=== PATIENT | female | born 1940 | race Caucasian/White ===

== ENCOUNTER 2020-07-09 07:51 | Outpatient (CLI) | payer MEDICARE ==
--- NOTE | 2020-07-09 09:02 | MRI ---
MRI lumbar spine noncontrast HISTORY: Low back pain. Right leg radiculopathy. FINDINGS: Conus medullaris has a normal appearance. Vertebral body heights are maintained. There is d esiccation of all of the intervertebral discs. Bone marrow signal very heterogeneous with moderate discogenic endplate changes. Sagittal images through the sacrum and coccyx show no presacral mass. T12-L1: Minimal disc bulge. Thecal sac is patent. Osteophytosis of the facets. Mild right and moderat e left foraminal stenoses. L1/2: Disc space narrowing. Posterior disc bulge and circumferential degenerative changes. Moderate t o severe stenosis of the central canal and each neural foramen. L2-3: Minimal degenerative spondylolisthesis. Posterior disc bulge and circumferential degenerative c hanges. Severe stenosis of the central canal. Moderate to severe stenosis of each neural foramen. L3-4: Disc space narrowing. Minimal degenerative retrolisthesis. Posterior disc bulge and circumferen tial degenerative changes. Severe stenosis of the central canal. Moderate to severe stenosis of each neural foramen. L4-5: Posterior disc bulge and circumferential degenerative changes. Moderate stenosis of the central canal and right neural foramen. Severe stenosis of the left neural foramen. L5-S1: The thecal sac is patent. Osteophytosis of each facet. Mild stenosis of each neural foramen. T arlov cyst associated with the right S2 nerve root is 1.3 cm greatest length on the sagittal images. IMPRESSION : Multilevel degenerative changes of the lumbar spine as detailed above, multilevel severe central pratibha l stenoses and severe left foraminal stenosis at the L4-5 level. Note that the transitional vertebra at the lumbosacral junction is designated L5 level.
== END 2020-07-09 07:52 | disposition home or self-care (01) ==
LOC: BICMRI 07:51
PROVIDERS: ATTEND Orthopaedic Surgery
DX: M54.5 Low back pain (principal); M47.816 Spondylosis without myelopathy or radiculopathy, lumbar region; M48.061 Spinal stenosis, lumbar region without neurogenic claudication; M48.05 Spinal stenosis, thoracolumbar region; M48.07 Spinal stenosis, lumbosacral region
CPT/HCPCS: 72148

== ENCOUNTER 2023-02-11 04:26 | Inpatient (IN) | payer MEDICARE ==
[2023-02-11] MEDS ORDERED: Nitroglycerin 0.4 MG TAB (25 Tab Bottle) SL PRN (07:17)
[2023-02-11] MEDS ORDERED: Acetaminophen 325 MG TAB PO PRN (07:17)
[2023-02-11] MEDS ORDERED: Ondansetron ODT 4 MG TAB PO PRN (07:17)
[2023-02-11 07:56] VITALS: BMI 21.7
[2023-02-11] MEDS ORDERED: Sodium Chloride 0.9% 1,000 ML IV SCH (08:45)
[2023-02-11] MEDS ORDERED: Apixaban 5 MG TAB PO SCH (09:00)
[2023-02-11] MEDS ORDERED: dilTIAZem 30 MG TAB PO SCH (09:00)
[2023-02-11] MEDS ORDERED: Communication Order-Pharmacy FS SCH ×2 (09:06→10:15)
[2023-02-11] MEDS: Sodium Chloride 0.9% 1,000 ML IV SCH (10:34)
[2023-02-11 10:44] LABS: Hematocrit 35.7 % (36.0-47.0); Hemoglobin 11.4 g/dL (12.0-16.0); Platelet Count 269 10x3/uL (130-400)
[2023-02-11] MEDS ORDERED: Iopamidol 370 76% 100 ML VIAL ONE (11:01)
[2023-02-11 11:59] LABS: Magnesium 1.8 mg/dL (1.6-2.6)
[2023-02-11] MEDS ORDERED: Midazolam HCl 2 mg/2 ml Vial ONE (12:25)
[2023-02-11] MEDS ORDERED: fentaNYL 50 mcg/mL 1 mL Vial ONE (12:25)
[2023-02-11] MEDS ORDERED: Verapamil 5 MG/2 ML VIAL ONE (12:26)
[2023-02-11] MEDS ORDERED: Nitroglycerin 50 MG/250 ML BOT 0 ML ONE (12:26)
[2023-02-11] MEDS ORDERED: Adenosine 6 MG/2 ML VIAL ONE (12:26)
[2023-02-11] MEDS ORDERED: Lidocaine 1% (PF) 30 ML VIAL ONE (12:26)
[2023-02-11] MEDS ORDERED: Heparin 10,000 UNITS/ 10 ML VIAL ONE (12:26)
[2023-02-11] MEDS: Carvedilol 3.125 MG TAB PO SCH (19:17)
[2023-02-12] MEDS ORDERED: Metoprolol Tartrate 5 MG/5 ML VIAL IVP SCH (02:30)
[2023-02-12] MEDS ORDERED: Sodium Chloride 0.9% 250 ML IV SCH (02:30)
[2023-02-12] MEDS: Sodium Chloride 0.9% 1,000 ML IV SCH ×2 (02:34→08:31)
[2023-02-12] MEDS: cefTRIAXone\\ROCEPHIN 1 GM in Sodium Chloride 0.9% 100 ML IVPB SCH (02:44)
[2023-02-12 04:21] LABS: Cardiac Risk 2.6 (Less than 4.5); Cholesterol 193 mg/dl (< 200 Desired); HDL Cholesterol 73 mg/dL (>60 Neg Risk); LDL Cholesterol, Calculated 108 mg/dL; Magnesium 1.8 mg/dL (1.6-2.6); Triglycerides 61 mg/dL (Less than 150)
[2023-02-12] MEDS ORDERED: Digoxin 0.5 MG/2 ML AMP SLOW IVP SCH (05:15)
[2023-02-12] MEDS ORDERED: Amiodarone 150 MG, Admixture Fee 1 EACH in Dextrose 5% in Water 100 ML IVPB SCH (05:30)
[2023-02-12] MEDS ORDERED: Apixaban 5 MG TAB PO SCH (05:30)
[2023-02-12] MEDS: Amiodarone 450 MG, Admixture Fee 1 EACH in Dextrose 5% in Water 250 ML IVPB SCH (06:20)
[2023-02-12] MEDS: Carvedilol 3.125 MG TAB PO SCH ×2 (08:30→21:00)
[2023-02-12 11:44] LABS: Anion Gap 17 mmol/L (10-20); BUN (Urea Nitrogen) 14 mg/dL (9.8-20.1); Calc. Creatinine Clearance 60 mL/min (70-130); Carbon Dioxide 20 mmol/L (23-31); Chloride 105 mmol/L (98-107); Estimated GFR 86; Glucose 102 mg/dL (83-110); Potassium 5.1 mmol/L (3.5-5.1)
[2023-02-12 11:45] LABS: Sodium 137 mmol/L (136-145)
[2023-02-12] MEDS ORDERED: Furosemide 20 MG/2 ML VIAL SLOW IVP ONE (12:45)
[2023-02-12] MEDS ORDERED: ALPRAZolam 0.25 MG TAB PO PRN (19:48)
[2023-02-12] MEDS: Atorvastatin Calcium 20 MG TAB PO SCH (20:59)
[2023-02-12] MEDS ORDERED: Apixaban 2.5 MG TAB PO SCH (21:00)
[2023-02-12] MEDS: Bupropion 100 MG SR TAB PO SCH (21:00)
[2023-02-12] MEDS: Apixaban 2.5 MG TAB PO SCH (21:00)
[2023-02-12] MEDS ORDERED: Ipratropium/Albuterol 3 ML NEB NEB PRN (22:39)
[2023-02-12] MEDS ORDERED: Ipratropium/Albuterol 3 ML NEB NEB SCH (22:45)
[2023-02-12] MEDS ORDERED: Furosemide 40 MG/4 ML VIAL SLOW IVP SCH (22:45)
[2023-02-12 23:14] LABS: #Eosinphils 0.1 thou/uL (0.0-0.7); #Monocytes 0.7 thou/uL (0.11-0.59); #Neutrophils 9.9 thou/uL (1.40-6.50); %Basophils 0.3 % (0.0-1.0); %Eosinophils 0.4 % (0.0-10.0); %Lymphocytes 10.9 % (21.0-51.0); %Monocytes 5.9 % (0.0-10.0); %Neutrophils 82.2 % (42.0-75.0); Hematocrit 39.1 % (36.0-47.0); Hemoglobin 12.7 g/dL (12.0-16.0); Mean Corpuscular HGB CONC 32.5 g/dL (32.0-36.0); Mean Corpuscular Hemoglobin 30.6 pg (27.0-31.0); Mean Corpuscular Volume 94.2 fl (78.0-98.0); Mean Platelet Volume 10.8 fL (7.4-10.4); Platelet Count 305 10x3/uL (130-400); RBC Distribution Width 13.8 % (11.5-14.5); Red Blood Cell (RBC) Count 4.15 mill/uL (4.20-5.40)
[2023-02-12] MEDS ORDERED: Electrolyte Replacement Protocol 1 EACH FS SCH ×2 (23:45)
[2023-02-12 23:47] LABS: ALT (SGPT) 28 U/L (8-55); AST (SGOT) 36 U/L (5-34); Albumin 4.2 g/dL (3.4-4.8); Alkaline Phosphatase 147 U/L (40-110); Anion Gap 15 mmol/L (10-20); BUN (Urea Nitrogen) 14 mg/dL (9.8-20.1); Bilirubin, Total 0.4 mg/dL (0.2-1.2); Calc. Creatinine Clearance 52 mL/min (70-130); Calcium 9.7 mg/dL (7.8-10.44); Carbon Dioxide 24 mmol/L (23-31); Chloride 99 mmol/L (98-107); Estimated GFR 73; Globulin 2.5 g/dL (2.4-3.5); Glucose 157 mg/dL (83-110); Potassium 3.4 mmol/L (3.5-5.1); Protein, Total 6.7 g/dL (5.8-8.1); Sodium 135 mmol/L (136-145)
[2023-02-12 23:57] LABS: Troponin I 0.516 ng/mL (< 0.028)
[2023-02-12] MEDS ORDERED: Magnesium 2 GM/50 ML(in water) 2 GM in Premix Bag 1 BAG IVPB SCH (23:59)
[2023-02-12] MEDS ORDERED: Potassium Chloride 20 MEQ TAB PO SCH (23:59)
[2023-02-13 00:14] LABS: Magnesium 1.8 mg/dL (1.6-2.6)
[2023-02-13] MEDS: cefTRIAXone\\ROCEPHIN 1 GM in Sodium Chloride 0.9% 100 ML IVPB SCH (04:55)
[2023-02-13] MEDS: Furosemide 40 MG/4 ML VIAL SLOW IVP SCH ×2 (04:56→15:36)
[2023-02-13] MEDS ORDERED: Montelukast Sodium 10 mg Tablet PO SCH (09:00)
[2023-02-13] MEDS: Fluticasone Propionate Nasal Spray 16 gm Bottle NASAL SCH (09:18)
[2023-02-13] MEDS: Oxybutynin ER 5 MG TAB PO SCH (09:20)
[2023-02-13] MEDS: ALPRAZolam 0.5 MG TAB PO PRN (09:20)
[2023-02-13] MEDS: Bupropion 100 MG SR TAB PO SCH ×2 (09:20→20:43)
[2023-02-13] MEDS: Apixaban 2.5 MG TAB PO SCH ×2 (09:21→20:43)
[2023-02-13] MEDS: Gabapentin 300 MG CAP PO SCH (09:21)
[2023-02-13] MEDS: Citalopram 20 MG TAB PO SCH (09:22)
[2023-02-13] MEDS: Montelukast Sodium 10 mg Tablet PO SCH (09:22)
[2023-02-13] MEDS: Carvedilol 3.125 MG TAB PO SCH ×2 (09:22→20:43)
[2023-02-13] MEDS: Digoxin 0.5 MG/2 ML AMP SLOW IVP SCH ×2 (10:29→13:43)
[2023-02-13] MEDS ORDERED: Ipratropium/Albuterol 3 ML NEB NEB SCH (12:45)
[2023-02-13] MEDS: Nitrofurantoin Monohyd/M-Cryst 100 MG CAP PO SCH ×2 (13:49→20:43)
[2023-02-13] MEDS ORDERED: Digoxin 0.25 MG TAB PO SCH (14:00)
[2023-02-13] MEDS: Atorvastatin Calcium 20 MG TAB PO SCH (20:43)
[2023-02-13] MEDS: Amiodarone 450 MG, Admixture Fee 1 EACH in Dextrose 5% in Water 250 ML IVPB SCH (20:43)
[2023-02-14] MEDS: ALPRAZolam 0.5 MG TAB PO PRN ×2 (01:31→21:11)
[2023-02-14 06:35] LABS: Hematocrit 33.3 % (36.0-47.0); Hemoglobin 10.8 g/dL (12.0-16.0); Mean Corpuscular HGB CONC 32.4 g/dL (32.0-36.0); Mean Corpuscular Hemoglobin 30.7 pg (27.0-31.0); Mean Corpuscular Volume 94.6 fl (78.0-98.0); Platelet Count 224 10x3/uL (130-400); RBC Distribution Width 13.5 % (11.5-14.5); Red Blood Cell (RBC) Count 3.52 mill/uL (4.20-5.40); White Blood Cell (WBC) Count 8.4 10x3/uL (4.8-10.8)
[2023-02-14 06:55] LABS: Anion Gap 11 mmol/L (10-20); BUN (Urea Nitrogen) 15 mg/dL (9.8-20.1); Calc. Creatinine Clearance 57 mL/min (70-130); Calcium 8.7 mg/dL (7.8-10.44); Carbon Dioxide 27 mmol/L (23-31); Chloride 95 mmol/L (98-107); Estimated GFR 78; Glucose 107 mg/dL (83-110); Potassium 3.4 mmol/L (3.5-5.1); Sodium 130 mmol/L (136-145)
[2023-02-14] MEDS ORDERED: Potassium Chloride 20 MEQ TAB PO SCH (08:30)
[2023-02-14] MEDS: Fluticasone Propionate Nasal Spray 16 gm Bottle NASAL SCH (09:00)
[2023-02-14] MEDS: Digoxin 0.125 MG TAB PO SCH (09:01)
[2023-02-14] MEDS: Montelukast Sodium 10 mg Tablet PO SCH (09:01)
[2023-02-14] MEDS: Nitrofurantoin Monohyd/M-Cryst 100 MG CAP PO SCH ×2 (09:01→21:11)
[2023-02-14] MEDS: Furosemide 40 MG TAB PO SCH (09:02)
[2023-02-14] MEDS: Oxybutynin ER 5 MG TAB PO SCH (09:02)
[2023-02-14] MEDS: Citalopram 20 MG TAB PO SCH (09:02)
[2023-02-14] MEDS: Apixaban 2.5 MG TAB PO SCH ×2 (09:02→21:12)
[2023-02-14] MEDS: Carvedilol 3.125 MG TAB PO SCH ×2 (09:02→21:11)
[2023-02-14] MEDS: Bupropion 100 MG SR TAB PO SCH ×2 (09:07→21:11)
[2023-02-14] MEDS ORDERED: Amiodarone 200 MG TAB PO SCH ×2 (09:39→10:00)
[2023-02-14] MEDS: Gabapentin 300 MG CAP PO SCH (11:54)
[2023-02-14] MEDS: Amiodarone 200 MG TAB PO SCH (21:11)
[2023-02-14] MEDS: Atorvastatin Calcium 20 MG TAB PO SCH (21:12)
[2023-02-15] MEDS ORDERED: Calcium Carbonate 500 MG ChewTAB PO PRN (04:43)
[2023-02-15 05:48] LABS: Anion Gap 13 mmol/L (10-20); BUN (Urea Nitrogen) 15 mg/dL (9.8-20.1); Calc. Creatinine Clearance 59 mL/min (70-130); Calcium 9.1 mg/dL (7.8-10.44); Carbon Dioxide 29 mmol/L (23-31); Chloride 96 mmol/L (98-107); Estimated GFR 82; Glucose 102 mg/dL (83-110); Potassium 3.7 mmol/L (3.5-5.1); Sodium 134 mmol/L (136-145)
[2023-02-15] MEDS: Amiodarone 200 MG TAB PO SCH (09:07)
[2023-02-15] MEDS: Citalopram 20 MG TAB PO SCH (09:08)
[2023-02-15] MEDS: Digoxin 0.125 MG TAB PO SCH (09:08)
[2023-02-15] MEDS: Oxybutynin ER 5 MG TAB PO SCH (09:08)
[2023-02-15] MEDS: Gabapentin 300 MG CAP PO SCH (09:08)
[2023-02-15] MEDS: Montelukast Sodium 10 mg Tablet PO SCH (09:08)
[2023-02-15] MEDS: Carvedilol 3.125 MG TAB PO SCH (09:09)
[2023-02-15] MEDS: Nitrofurantoin Monohyd/M-Cryst 100 MG CAP PO SCH (09:09)
[2023-02-15] MEDS: Furosemide 40 MG TAB PO SCH (09:09)
[2023-02-15] MEDS: Fluticasone Propionate Nasal Spray 16 gm Bottle NASAL SCH (09:09)
[2023-02-15] MEDS: Bupropion 100 MG SR TAB PO SCH (09:09)
[2023-02-15] MEDS: Apixaban 2.5 MG TAB PO SCH (09:09)
[2023-02-15 15:55] VITALS: BP 109/54; TEMP 97.6
== END 2023-02-15 20:00 | disposition home or self-care (01) | DRG 280 ==
LOC: 2NO 05:28
PROVIDERS: ADMIT Student in an Organized Health Care Education/Training Program; ATTEND Hospitalist
PROC: 4A023N7 Measurement of Cardiac Sampling and Pressure, Left Heart, Percutaneous Approach (ICD-10-PCS; principal; 2023-02-11)
PROC: B2111ZZ Fluoroscopy of Multiple Coronary Arteries using Low Osmolar Contrast (ICD-10-PCS; 2023-02-11)
PROC: B2151ZZ Fluoroscopy of Left Heart using Low Osmolar Contrast (ICD-10-PCS; 2023-02-11)
DX: I51.81 Takotsubo syndrome (principal); I50.21 Acute systolic (congestive) heart failure; I21.A1 Myocardial infarction type 2; E87.1 Hypo-osmolality and hyponatremia; N39.0 Urinary tract infection, site not specified; E78.00 Pure hypercholesterolemia, unspecified; E86.0 Dehydration; I48.0 Paroxysmal atrial fibrillation; F32.A Depression, unspecified; E87.6 Hypokalemia; Z90.13 Acquired absence of bilateral breasts and nipples; Z88.8 Allergy status to other drugs, medicaments and biological substances; Z98.890 Other specified postprocedural states; Z90.49 Acquired absence of other specified parts of digestive tract; Z87.891 Personal history of nicotine dependence
CPT/HCPCS: 36415; 36416; 71045; 80048; 80053; 80061; 81001; 83605; 83735; 83880; 84443; 84484; 85025; 85027; 86850; 86900; 86901; 87077; 87086; 87186; 93005; 93010; 93306; 93458; 94640; 94760; 99152; C1769; C1894; J0153; J0282; J0696; J1160; J1644; J1940; J2001; J2250; J3010; J3475; J3490; J7030; J7050; J7070; J7620; Q0162; Q9967

== ENCOUNTER 2025-03-29 11:28 | Emergency (ER) | payer MEDICARE ==
[2025-03-29 12:09] LABS: #Basophils 0.05 10x3/uL (0.0-0.2); #Eosinophils 0.24 10x3/uL (0.0-0.7); #Monocytes 0.51 10x3/uL (0.11-0.59); #Neutrophils 3.75 10x3/uL (1.40-6.50); %Basophils 1.0 % (0.0-1.0); %Eosinophils 4.7 % (0.0-10.0); %Lymphocytes 10.6 % (21.0-51.0); %Monocytes 10.0 % (0.0-10.0); %Neutrophils 73.5 % (42.0-75.0); Hematocrit 32.2 % (36.0-47.0); Hemoglobin 10.4 g/dL (12.0-16.0); Mean Corpuscular Hemoglobin 30.5 pg (27.0-31.0); Mean Corpuscular Volume 94.4 fL (78.0-98.0); Platelet Count 189 10x3/uL (130-400); Red Blood Cell (RBC) Count 3.41 mill/uL (4.20-5.40); White Blood Cell (WBC) Count 5.10 10x3/uL (4.8-10.8)
[2025-03-29 12:38] LABS: ALT (SGPT) 24 U/L (Less than 34); AST (SGOT) 36 U/L (11-34); Albumin 2.9 g/dL (3.1-4.5); Alkaline Phosphatase 54 U/L (40-110); Anion Gap 12 mmol/L (10-20); BUN (Urea Nitrogen) 11 mg/dL (9.8-20.1); Bilirubin, Total 0.3 mg/dL (0.3-1.2); Calc. Creatinine Clearance 0 mL/min (70-130); Calcium 8.6 mg/dL (7.8-10.44); Carbon Dioxide 29 mmol/L (23-31); Chloride 107 mmol/L (98-107); Globulin 2.3 g/dL (2.4-3.5); Glucose 76 mg/dL (83-110); Potassium 3.9 mmol/L (3.5-5.1); Sodium 144 mmol/L (136-145)
[2025-03-29 13:45] LABS: CAUTI Indications for Culture Alt mental st,lethar; Glucose, Urine (Dipstick) Normal (Negative); Leukocyte 75 Leu/uL (Negative); Protein, Urine (Dipstick) Negative (Neg-Trace); RBC/HPF None Seen HPF (0-3); Specific Gravity, Urine 1.007 (1.002-1.036)
[2025-03-29 14:01] LABS: Bacteria/HPF 1+ HPF (None Seen)
[2025-03-29 14:02] LABS: Urine Culture Reflex No No
[2025-03-29] MEDS ORDERED: cefTRIAXone (ROCEPHIN) 1 GM VIAL ONE (14:26)
== END 2025-03-29 19:10 ==
LOC: ERS 11:28
DX: R53.1 Weakness (principal); N39.0 Urinary tract infection, site not specified; I10 Essential (primary) hypertension; Z87.891 Personal history of nicotine dependence
CPT/HCPCS: 71045; 73110; 80053; 81001; 83605; 83880; 84484; 85025; 87040; 87428; 93005; J0696; 36415; 96361; 96365; 96366